=== PATIENT | female | born 1935 | race Caucasian/White ===

== ENCOUNTER 2017-02-11 18:00 | Inpatient (IN) | payer MEDICARE ==
--- NOTE | ~2017-02-11 | EKG ---
PATIENT: SMITH WELCH UNIT #: [id number] Ventricular Rate: 86 BPM Atrial Rate: 108 BPM QRS Duration: 90 ms Q-T Interval: 434 ms QTC Calculation(Bezet): 519 ms Calculated R [place]: -20 degrees Calculated T [place]: 37 degrees Diagnosis Line: Atrial fibrillation with premature ventricular or Diagnosis Line: aberrantly conducted complexes Diagnosis Line: Moderate voltage criteria for LVH, may be normal Diagnosis Line: variant Diagnosis Line: Prolonged QT Diagnosis Line: Abnormal ECG Diagnosis Line: When compared with ECG of 26-MAR-2015 14:08, Diagnosis Line: Atrial fibrillation has replaced Sinus rhythm Diagnosis Line: Confirmed by JOSELUIS HOUSER MD ([id number]) on 02/12/2017 Diagnosis Line: 9:57:03 PM INTERPRETING MD: CORRINA SANTANA
--- NOTE | ~2017-02-11 | EKG ---
PATIENT: SMITH WELCH UNIT #: [id number] Ventricular Rate: 116 BPM Atrial Rate: 116 BPM QRS Duration: 86 ms Q-T Interval: 360 ms QTC Calculation(Bezet): 500 ms Calculated R [place]: -9 degrees Calculated T [place]: 25 degrees Diagnosis Line: Atrial fibrillation with rapid ventricular Diagnosis Line: response with premature ventricular or aberrantly Diagnosis Line: conducted complexes Diagnosis Line: Cannot rule out Inferior infarct , age Diagnosis Line: undetermined Diagnosis Line: Abnormal ECG Diagnosis Line: When compared with ECG of 12-FEB-2017 07:43, Diagnosis Line: (unconfirmed) Diagnosis Line: Nonspecific T wave abnormality, worse in Inferior Diagnosis Line: leads Diagnosis Line: Confirmed by JOSELUIS HOUSER MD ([id number]) on 02/12/2017 Diagnosis Line: 9:59:24 PM INTERPRETING MD: CORRINA SANTANA
--- NOTE | ~2017-02-11 | EKG ---
PATIENT: SMITH WELCH UNIT #: [id number] Ventricular Rate: 87 BPM Atrial Rate: 85 BPM QRS Duration: 90 ms Q-T Interval: 430 ms QTC Calculation(Bezet): 517 ms Calculated R [place]: -11 degrees Calculated T [place]: 18 degrees Diagnosis Line: Atrial fibrillation with premature ventricular or Diagnosis Line: aberrantly conducted complexes Diagnosis Line: Prolonged QT Diagnosis Line: Abnormal ECG Diagnosis Line: When compared with ECG of 26-MAR-2015 14:08, Diagnosis Line: Atrial fibrillation has replaced Sinus rhythm Diagnosis Line: Confirmed by JOSELUIS HOUSER MD ([id number]) on 02/12/2017 Diagnosis Line: 9:54:28 PM INTERPRETING MD: CORRINA SANTANA
--- NOTE | ~2017-02-11 | DS ---
Unit #: [id number] #: [id number] Patient: SMITH WELCH [id number] [address] [place], [place] [address] [id number] I MR#: [id number] NAME: SMITH WELCH ROOM: 548 Age: 81 Sex: F Admission Date: 02/11/2017 : 1935 Discharge Date: 02/13/2017 Attending Physician: Ritchie Mariee M.D. Primary Care Physician: Rajat Candelario M.D. DISCHARGE SUMMARY DISCHARGE DIAGNOSES 1. New onset atrial fibrillation. 2. Systolic congestive heart failure. 3. Valvular heart disease with moderate to severe mitral regurgitation, moderate tricuspid regurgitation, left ventricular ejection fraction 40% to 45%. 4. Hypertension. DISCHARGE MEDICATIONS Xarelto 15 mg p.o. daily, alprazolam 0.25 mg p.o. q.h.s. as needed anxiety, Carvedilol 6.25 mg p.o. b.i.d., MiraLAX 17 g daily as needed for constipation, furosemide 40 mg p.o. once daily, Cozaar 100 mg p.o. q.h.s., multivitamin one tab p.o. daily, calcium carbonate with vitamin D one tab p.o. daily, potassium chloride 20 mEq p.o. b.i.d. for 5 days and 1 daily. HOSPITAL COURSE The patient was seen in the office on 02/11/[address] Mariee, seen and examined. She had been accompanied by her daughter. After being seen by Dr. Rajat Candelario earlier in the day where an EKG was performed and showed atrial fibrillation with rapid ventricular response, which was new in comparison to the EKG in 10/2016. The patient was referred to Dr. Mariee for further evaluation. 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 Dr. Mariee found that she again was in atrial fibrillation with RVR and was volume overloaded and felt that she needed to be admitted for further evaluation. Initial EKG in the hospital shows atrial fibrillation with rapid ventricular response rate of 116 beats per minute, cannot rule out prior inferior infarct, age undetermined, QTc interval 500 msec. No acute ischemic changes noted. The patient was started on Xarelto 15 mg immediately for anticoagulation secondary to the new onset of atrial fibrillation, when it began is unknown. She was also given losartan, Lasix and carvedilol. She underwent a chest x-ray, and also had lab work done. The patient had a 2D echocardiogram during this hospitalization, which shows ejection fraction at 40% to 45%, moderate hypokinesis of the distal septal wall, mild AR, mild mitral valve prolapse, moderate to severe mitral regurgitation, eccentric mitral regurgitation jet, moderate tricuspid regurgitation, RVSP is 31 mmHg. No pericardial effusion was noted. She was diuresed and also placed on rate controlling agents with carvedilol, which was increased during her hospitalization. Her blood pressure tolerated it well. Unit #: [id number] #: [id number] Patient: SMITH WELCH At present, the patient has been up and about, moving. Her only complaint is arthritic pain. Again denies any complaints of chest pain or shortness of breath. At this time, she has felt she is ready to go home. PAST MEDICAL HISTORY 1. Hypertension. 2. Hyperlipidemia. 3. New onset atrial fibrillation with rapid ventricular response. 4. Systolic congestive heart failure. 5. Valvular heart disease with [id number] MR and TR. 6. Anxiety. 7. Arthritis. 8. Constipation. 9. Degenerative disk disease. CONSULTANTS None. DIAGNOSTIC STUDIES IMAGING STUDIES: PA and lateral of the chest shows no acute chest findings. No evidence of pulmonary edema. Stable cardiomegaly. Stable large hiatal hernia on the left corresponding to previous CT of the abdomen. Probable chronic passive left basilar atelectasis as a result. LABORATORY RESULTS: Glucose 113, BUN 28, creatinine 1.1, sodium 137, potassium 3.7, chloride 104, CO2 of 28, magnesium 1.8. BNP 255. Cholesterol 162, triglycerides 88, LDL 86, HDL 58. TSH 2.57, free T4 is 0.93. Hemoglobin 13.3, hematocrit 41.1, WBC 5.9, platelet 263. CARDIOVASCULAR STUDIES: EKG shows atrial fibrillation with RVR, occasional PVCs, 116 beats per minute, cannot rule out inferior infarct, age undetermined, QTc interval of 500 msec. 2D echocardiogram on 02/11/2017 shows EF of 40% to 45%, mild AR, mild mitral valve prolapse, moderate to severe mitral regurgitation, eccentric mitral regurgitation jet, moderate tricuspid regurgitation, RVSP 31 mmHg. No pericardial effusion. Aortic root is within normal limits. PHYSICAL EXAMINATION VITAL SIGNS: Temperature 97.8, respiratory rate 18 to 20, pulse is 63 to low 100. She does get a little elevated with activity into the 110s to 120s. Blood pressure 118/67 to 149/87. GENERAL: This is a very pleasant, 81-year-old, female, up in the chair, in no acute distress. She has been ambulating in the hallway without difficulty. HEENT: Pupils are equal and round. Mucous membranes are moist. NECK: Trachea is midline. No carotid bruits. No JVD. CARDIOVASCULAR: S1, S2. Irregularly irregular. Grade 1/6 systolic murmur noted at the left lower sternal border. LUNGS: Clear to auscultation. ABDOMEN: Soft, nontender, nondistended. Positive bowel sounds. EXTREMITIES: No pedal edema. NEUROLOGIC: She is awake, alert, and oriented x3. She moves all extremities equally. She follows commands with ease. DISCHARGE INSTRUCTIONS The patient was admitted secondary to new onset atrial fibrillation and Unit #: [id number] #: [id number] Patient: SMITH WELCH systolic congestive heart failure. She has been seen and evaluated by Dr. Mariee today and he has felt she is stable for discharge. The patient has been started on anticoagulation with Xarelto. She was notified regarding the risks of bleeding and what to monitor for. The patient verbalized understanding. She appears euvolemic at this time. She is feeling much better. She complains only of arthritic pain and nasal stuffiness. Her chest is clear. Her heart sounds are normal other than a mild systolic murmur. The patient has also been started on beta-joseph therapy. Her cardiac rhythm has remained stable. She remains in atrial fibrillation with mostly controlled rates, occasionally tachycardic with activity. All instructions were given to the patient. Signs and symptoms of heart failure were reviewed with her and for which she should notify the office. The patient was advised to notify our office if she notices increasing shortness of breath, chest pain, or leg swelling. She is okay with the cost of Xarelto and is agreeable. She will see Dr. Mariee in the office on 02/27/2017 at 1:00 p.m. If she remains in atrial fibrillation at that time, and is continued on chronic anticoagulation, DC cardioversion could be considered. Dictated by... Barbara Delong A.P.R.N. for Isai Stover/laly TD: 02/14/2017 08:43 JOB #: [id number] DISCHARGE SUMMARY X Barbara Delong APRN X DISCHARGE SUMMARY
--- NOTE | ~2017-02-11 | CR63 ---
[facility] A Service of [facility] & [facility] RADIOLOGY TEXT RESULTS PATIENT: SMITH WELCH LOCATION: [facility] [id number] : [birth year] UNIT #: [id number] AGE: [address]: Ritchie Mariee MD SEX: F ORDER DR: [id number] [facility] [address] [facility]. [place], [place] [address] [id number] I MR#: [id number] Acc #: [id number] NAME: SMITH WELCH : 1935 SEX: F STUDY DATE/TIME: 02/11/2017 22:42 UNIT: C5 ROOM: [facility] STUDY DESCRIPTION: CR Chest 2 View Attending Physician: Ritchie Mariee M.D. Ordering Physician: Ritchie Mariee M.D. Primary Care Physician: Rajat Candelario M.D. MEDICAL IMAGING REPORT This report is preliminary unless electronic signature is present EXAM PA and lateral chest, 02/11/2017. HISTORY 81-year-old female with direct admission for congestive heart failure. Weakness, atrial fibrillation, and short of breath for 1 day. History of colon cancer in 2004. COMPARISON STUDIES AP portable chest radiograph, 03/26/2005; PA and lateral chest, 01/09/2015, CT abdomen and pelvis, 11/07/2012. FINDINGS There is a large hiatal hernia projecting to the left of midline, corresponding to previous CT abdomen from 2011. This results in probably passive left basilar atelectasis. However, no acute-appearing airspace disease is identified. There is mild cardiac enlargement, but pulmonary vascular distribution is within normal limits, and there is no evidence of pulmonary edema. No pleural effusion or pneumothorax is seen. IMPRESSION 1. No acute chest findings. No evidence of pulmonary edema. 2. Stable cardiomegaly. 3. Stable large hiatal hernia on the left corresponding to previous CT abdomen from 2011. Probable chronic passive left basilar atelectasis as a result. Dictated by... Diana Redd M.D. THIS IS AN ELECTRONICALLY VERIFIED REPORT [facility] A Service of [facility] RADIOLOGY TEXT RESULTS PATIENT: SMITH WELCH LOCATION: [facility] [phone] : [birth year] UNIT #: [id number] AGE: [address]: Ritchie Mariee MD SEX: F ORDER DR: Diana Redd M.D. at 02/12/2017 10:26 PM SHELBY/antonino TD: 02/12/2017 11:34 JOB #: [id number] MEDICAL IMAGING REPORT COPY
[~2017-02-11 18:00] MED LIST: ALEVE220 M1; ALEVE220 M1 PO; ALPRAZOLAM1 MG PO; AMLODIPINE BES2.5 MG PO; AMLODIPINE BESYL5 MG PO; ATACAND HCT 32/1 TAB; CALCIUM + D 6001 TA1 PO; CALCIUM 600 + D1 TA1 PO; CENTRUM SILVER; CENTRUM SILVER PO; COLACE; DIOVAN PO; GLUCOSAMINE CHO PO; GLUCOSAMINE CHON; K-DUR20 ME1 PO; LORTAB 7.5-5001 TAB PO; LOSARTAN-HCTZ1 EAC1 PO; LOSARTAN-HCTZ1 EAC2 PO; MIRALAX17 GM PO; MULTI-VITAMIN1 TAB; RA GLUCOSAMINE PO; ZOLPIDEM TARTRAT5 MG PO; ZYRTEC10 M2 PO; [UNRECOGNIZED DRUG - OTHER]
[2017-02-11 22:09] LABS: BASOPHIL# 0.1 X10e3 (0-0.3); BASOPHIL% 2.5 % (0-2.5); EOSINOPHIL# 0.1 X10e3 (0-0.7); EOSINOPHIL% 1.7 % (0.0-7.0); HEMATOCRIT 41.1 % (35.0-45.0); HEMOGLOBIN 13.3 gm/dL (12.0-16.0); LYMPHOCYTE# 1.6 X10e3 (1.0-3.5); LYMPHOCYTE% 27.9 % (17.0-45.0); MEAN CORPUSCULAR HEMOGLOBIN 29.9 PG (28-34); MEAN CORPUSCULAR HGB CONC 32.5 g/dL (30-36); MEAN PLATELET VOLUME 7.7 FL (6.5-11.5); MONOCYTE# 0.5 X10e3 (0-1.0); MONOCYTE% 7.7 % (3.0-12.0); NEUTROPHIL# 3.5 X10e3 (1.5-7.1); NEUTROPHIL% 60.2 % (40-75); PLATELET COUNT 263 X10e3 (140-420); RED BLOOD COUNT 4.46 X10e (3.90-5.30); RED CELL DISTRIBUTION WIDTH 13.9 % (11.0-15.5); WHITE BLOOD COUNT 5.9 X10e3 (4.0-10.5)
[2017-02-11 22:11] LABS: DIFF IND NO
[2017-02-11 22:31] LABS: ALBUMIN SERUM 4.3 g/dL (3.5-5.0); ALKALINE PHOSPHATASE 57 U/L (32-92); ALT (SGPT) 14 U/L (10-40); AST (SGOT) 22 U/L (10-42); BILIRUBIN,TOTAL 0.8 mg/dL (0.2-2.0); BLOOD UREA NITROGEN 23 mg/dL (9-23); BUN/CREATININE RATIO 25.55; CARBON DIOXIDE 25 mmol/L (22-31); CHLORIDE 108 mmol/L (100-111); CREATININE SERUM 0.9 mg/dL (0.6-1.4); GLOM FILT RATE Estimated ABOVE60 mL/min (>60); GLUCOSE FASTING 117 mg/dL (70-110); POTASSIUM 3.6 mmol/L (3.5-5.1); PROTEIN TOTAL SERUM 6.7 g/dL (6.0-8.3); SODIUM 137 mmol/L (135-145)
[2017-02-11] MEDS ORDERED: CALCIUM 600 + D1 TAB PO (23:12)
[2017-02-11] MEDS ORDERED: CENTRUM SILVER PO (23:13)
[2017-02-11 23:14] LABS: THYROID STIMULATING HORMONE 2.57 uIU/ml (0.34-5.60)
[2017-02-11] MEDS ORDERED: ALPRAZOLAM0.25 MG PO (23:14)
[2017-02-11] MEDS ORDERED: K-DUR20 ME1 DOB (23:14)
[2017-02-11] MEDS ORDERED: MIRALAX17 GM DOB (23:15)
[2017-02-11] MEDS ORDERED: LOSARTAN-HCTZ1 EAC1 PO (23:16)
[2017-02-11 23:21] LABS: FREE THYROXIN (T4) 0.93 ng/dL (0.58-1.64)
[2017-02-12 06:29] LABS: CHOLESTEROL 162 mg/dL (0-200); HDL CHOLESTEROL 58 mg/dL (35-95); LDL CHOLESTEROL 86 mg/dL (-130); LDL/HDL RATIO 1 RATIO (0-4); TRIGLYCERIDES 88 mg/dL (10-160)
[2017-02-12 13:31] LABS: CALCIUM SERUM 9.1 mg/dL (8.4-10.2); GLOM FILT RATE Estimated 56.3 mL/min (>60); MAGNESIUM 1.8 mg/dL (1.6-3.0); POTASSIUM 3.4 mmol/L (3.5-5.1)
[2017-02-13 09:54] LABS: BUN/CREATININE RATIO 25.45; CREATININE SERUM 1.1 mg/dL (0.6-1.4); GLOM FILT RATE Estimated 50.4 mL/min (>60); POTASSIUM 3.7 mmol/L (3.5-5.1)
[2017-02-13] MEDS ORDERED: XARELTO15 MG PO (11:59)
[2017-02-13] MEDS ORDERED: ARTHRITIS PAIN650 M3 PO (11:59)
[2017-02-13] MEDS ORDERED: COREG6.25 MG PO (14:29)
[2017-02-13] MEDS ORDERED: K-DUR20 ME1 PO (14:31)
[2017-02-13] MEDS ORDERED: COZAAR100 MG PO (14:32)
[2017-02-13] MEDS ORDERED: FUROSEMIDE40 MG PO (14:33)
[2017-04-22] MEDS ORDERED: LOSARTAN-HCTZ1 EAC3 PO (15:39)
[2017-04-22] MEDS ORDERED: KCL (15:39)
[2017-04-22] MEDS ORDERED: HEART MED (15:41)
[2017-04-23] MEDS ORDERED: ARTHRITIS PAIN650 M3 PO (10:57)
[2017-04-23] MEDS ORDERED: ALPRAZOLAM0.25 M1 PO (10:57)
[2017-04-23] MEDS ORDERED: COREG6.25 M1 PO (10:58)
[2017-04-23] MEDS ORDERED: AMIODARONE HCL200 MG PO (11:45)
[2017-04-23] MEDS ORDERED: MULTI VITAMIN1 EACH PO (15:38)
[2017-04-23] MEDS ORDERED: XARELTO15 MG PO (15:38)
[2017-04-23] MEDS ORDERED: ALEVE220 M1 PO (15:40)
[2017-04-23] MEDS ORDERED: MIRALAX119 GM PO (15:40)
[2017-04-23] MEDS ORDERED: CALCIUM 500 +1 EAC6 PO (15:40)
== END 2017-02-13 18:33 | disposition home or self-care (01) | DRG 308 ==
LOC: C5B 18:00
PROVIDERS: Internal Medicine Cardiovascular Disease; Nurse Practitioner
DX: I48.91 Unspecified atrial fibrillation (principal); I50.23 Acute on chronic systolic (congestive) heart failure; I11.0 Hypertensive heart disease with heart failure; I08.3 Combined rheumatic disorders of mitral, aortic and tricuspid valves; E78.5 Hyperlipidemia, unspecified; F41.9 Anxiety disorder, unspecified; M19.90 Unspecified osteoarthritis, unspecified site
CPT/HCPCS: 71020; 80048; 80053; 80061; 83735; 83880; 84439; 84443; 85025; 93005; J3475

== ENCOUNTER 2017-04-14 18:28 | Emergency (ER) | payer MEDICARE ==
--- NOTE | ~2017-04-14 | EKG ---
PATIENT: SMITH WELCH UNIT #: [id number] Ventricular Rate: 100 BPM Atrial Rate: 300 BPM QRS Duration: 102 ms Q-T Interval: 406 ms QTC Calculation(Bezet): 523 ms Calculated R [place]: -23 degrees Calculated T [place]: 8 degrees Diagnosis Line: Atrial flutter with variable A-V block Diagnosis Line: Moderate voltage criteria for LVH, may be normal Diagnosis Line: variant Diagnosis Line: Prolonged QT Diagnosis Line: Abnormal ECG Diagnosis Line: When compared with ECG of 12-FEB-2017 11:11, Diagnosis Line: Atrial flutter has replaced Atrial fibrillation Diagnosis Line: Criteria for Inferior infarct are no longer Diagnosis Line: Present Diagnosis Line: Confirmed by DEE DEE MCGEE MD ([id number]) on Diagnosis Line: 04/15/2017 1:31:33 PM INTERPRETING MD: EVERARDO SANTANA
[~2017-04-14 18:28] MED LIST changes: +ALPRAZOLAM0.25 MG PO; +ARTHRITIS PAIN650 M3 PO; +CALCIUM 600 + D1 TAB PO; +COREG6.25 MG PO; +COZAAR100 MG PO; +FUROSEMIDE40 MG PO; +K-DUR20 ME1 DOB; +MIRALAX17 GM DOB; +XARELTO15 MG PO
[2017-04-14 19:14] LABS: BASOPHIL% 0.8 % (0-2.5); EOSINOPHIL# 0.1 X10e3 (0-0.7); EOSINOPHIL% 1.8 % (0.0-7.0); HEMOGLOBIN 13.7 gm/dL (12.0-16.0); LYMPHOCYTE# 1.6 X10e3 (1.0-3.5); LYMPHOCYTE% 27.2 % (17.0-45.0); MEAN CORPUSCULAR HGB CONC 32.6 g/dL (30-36); MEAN PLATELET VOLUME 7.5 FL (6.5-11.5); MONOCYTE# 0.5 X10e3 (0-1.0); MONOCYTE% 7.7 % (3.0-12.0); NEUTROPHIL# 3.7 X10e3 (1.5-7.1); NEUTROPHIL% 62.5 % (40-75); PLATELET COUNT 268 X10e3 (140-420); RED BLOOD COUNT 4.57 X10e (3.90-5.30); RED CELL DISTRIBUTION WIDTH 13.5 % (11.0-15.5); WHITE BLOOD COUNT 5.9 X10e3 (4.0-10.5)
[2017-04-14 19:15] LABS: DIFF IND NO
[2017-04-14 19:39] LABS: ALBUMIN SERUM 4.4 g/dL (3.5-5.0); BILIRUBIN,TOTAL 0.8 mg/dL (0.2-2.0); CALCIUM SERUM 9.2 mg/dL (8.4-10.2); GLOM FILT RATE Estimated 52.1 mL/min (>60); POTASSIUM 3.3 mmol/L (3.5-5.1); PROTEIN TOTAL SERUM 7.3 g/dL (6.0-8.3)
[2017-04-14 21:19] LABS: POC - CKMB <1.0 ng/mL (0.0-7.9); POC - TROPONIN <0.05 ng/mL (<=0.05)
[2017-04-14 22:21] LABS: CULTURE INDICATED? YES; URINE APPEARANCE CLEAR; URINE BACTERIA AUWI NEG (NEGATIVE); URINE BILIRUBIN NEG (NEG); URINE BLOOD 2+ (NEG); URINE COLOR YELLOW; URINE GLUCOSE NEG (NEG); URINE KETONE NEG (NEG); URINE LEUKOCYTE ESTERASE 1+ (NEG); URINE NITRATE NEG (NEG); URINE PROTEIN 1+ (NEG); URINE SPECIFIC GRAVITY 1.006 (1.003-1.035); URINE SQUAMOUS EPITHELIAL CELL OCC /[HPF]; URINE UROBILINOGEN 0.2 MG/DL (NEG)
[2017-04-22] MEDS ORDERED: LOSARTAN-HCTZ1 EAC3 PO (15:39)
[2017-04-22] MEDS ORDERED: KCL (15:39)
[2017-04-22] MEDS ORDERED: HEART MED (15:41)
[2017-04-23] MEDS ORDERED: ARTHRITIS PAIN650 M3 PO (10:57)
[2017-04-23] MEDS ORDERED: ALPRAZOLAM0.25 M1 PO (10:57)
[2017-04-23] MEDS ORDERED: COREG6.25 M1 PO (10:58)
[2017-04-23] MEDS ORDERED: AMIODARONE HCL200 MG PO (11:45)
[2017-04-23] MEDS ORDERED: XARELTO15 MG PO (15:38)
[2017-04-23] MEDS ORDERED: MULTI VITAMIN1 EACH PO (15:38)
[2017-04-23] MEDS ORDERED: ALEVE220 M1 PO (15:40)
[2017-04-23] MEDS ORDERED: MIRALAX119 GM PO (15:40)
[2017-04-23] MEDS ORDERED: CALCIUM 500 +1 EAC6 PO (15:40)
== END 2017-04-14 22:52 | disposition home or self-care (01) ==
LOC: CED 18:28
PROVIDERS: Emergency Medicine
DX: N30.00 Acute cystitis without hematuria (principal); I48.91 Unspecified atrial fibrillation; I10 Essential (primary) hypertension; F17.200 Nicotine dependence, unspecified, uncomplicated; Z88.8 Allergy status to other drugs, medicaments and biological substances; Z88.5 Allergy status to narcotic agent
CPT/HCPCS: 80053; 81003; 82553; 84484; 85025; 87086; 93005; 99283

== ENCOUNTER → 2017-04-23 | Outpatient (CLI) | payer MEDICARE ==
[~2017-04-23] MED LIST changes: +ALPRAZOLAM0.25 M1 PO; +AMIODARONE HCL200 MG PO; +CALCIUM 500 +1 EAC6 PO; +COREG6.25 M1 PO; +HEART MED; +KCL; +LOSARTAN-HCTZ1 EAC3 PO; +MIRALAX119 GM PO; +MULTI VITAMIN1 EACH PO
--- NOTE | ~2017-04-23 | OR ---
Unit #: [id number] #: [id number] Patient: SMITH WELCH [id number] [address] [address] [id number] MR#: [id number] NAME: SMITH WLECH ROOM: Date of Procedure: 04/23/2017 Admission Date: 04/23/2017 Surgeon: Ritchie Mariee M.D. : 1935 Attending Physician: Ritchie Mariee M.D. Referring Physician: Ritchie Mariee M.D. Primary Care Physician: Rajat Candelario M.D. OPERATIVE REPORT PROCEDURE PERFORMED Direct current shock cardioversion. INDICATIONS FOR PROCEDURE Atrial fibrillation. DESCRIPTION OF PROCEDURE The patient was brought to the cardiac catheterization lab, pulse oximetry showed a saturation of 97%. Rhythm was atrial fibrillation. Blood pressure was 140/70 mmHg. The patient was given 3 mg of intravenous Versed and 100 mcg of fentanyl in a graded manner. Once amnesia was established, using 250 joules per second of biphasic current DC shock cardioversion was performed. Rhythm converted to normal sinus with occasional PVCs. No other complications were encountered. IMPRESSION Successful direct current shock cardioversion, atrial fibrillation converted to normal sinus. The patient will be continued on all her home medicines and discharged home this afternoon. Dictated by... Isai Stover/laly TD: 04/23/2017 22:07 JOB #: [id number] OPERATIVE REPORT Page 1 of 1 X Ritchie Mariee MD X PROCEDURE OPERATIVE NOTE
--- NOTE | ~2017-04-23 | EKG ---
PATIENT: SMITH WELCH UNIT #: [id number] Ventricular Rate: 87 BPM Atrial Rate: 308 BPM QRS Duration: 98 ms Q-T Interval: 430 ms QTC Calculation(Bezet): 517 ms Calculated R [place]: -19 degrees Calculated T [place]: 45 degrees Diagnosis Line: Atrial flutter with variable A-V block Diagnosis Line: Minimal voltage criteria for LVH, may be normal Diagnosis Line: variant Diagnosis Line: Nonspecific ST abnormality Diagnosis Line: Prolonged QT Diagnosis Line: Abnormal ECG Diagnosis Line: When compared with ECG of 14-APR-2017 18:31, Diagnosis Line: No significant change was found Diagnosis Line: Confirmed by HUMZA LOPES MD ([id number]) on Diagnosis Line: 04/24/2017 1:17:28 PM INTERPRETING MD: JOHN
--- NOTE | ~2017-04-23 | EKG ---
PATIENT: SMITH WELCH UNIT #: [id number] Ventricular Rate: 61 BPM Atrial Rate: 61 BPM P-R Interval: 250 ms QRS Duration: 102 ms Q-T Interval: 472 ms QTC Calculation(Bezet): 475 ms P [place]: 56 degrees Calculated R [place]: -24 degrees Calculated T [place]: 83 degrees Diagnosis Line: Sinus rhythm with 1st degree A-V block Diagnosis Line: Moderate voltage criteria for LVH, may be normal Diagnosis Line: variant Diagnosis Line: Nonspecific T wave abnormality Diagnosis Line: Prolonged QT Diagnosis Line: Abnormal ECG Diagnosis Line: When compared with ECG of 23-APR-2017 11:11, Diagnosis Line: (unconfirmed) Diagnosis Line: Sinus rhythm has replaced Atrial flutter Diagnosis Line: Nonspecific T wave abnormality, worse in Inferior Diagnosis Line: leads Diagnosis Line: Confirmed by HUMZA LOPES MD ([id number]) on Diagnosis Line: 04/24/2017 1:17:40 PM INTERPRETING MD: JOHN
[2017-04-23 11:00] LABS: HEMATOCRIT 45.9 % (35.0-45.0); HEMOGLOBIN 14.9 gm/dL (12.0-16.0); MEAN CELL VOLUME 93.2 FL (83-96); MEAN CORPUSCULAR HEMOGLOBIN 30.2 PG (28-34); MEAN CORPUSCULAR HGB CONC 32.4 g/dL (30-36); MEAN PLATELET VOLUME 7.7 FL (6.5-11.5); RED BLOOD COUNT 4.93 X10e (3.90-5.30); RED CELL DISTRIBUTION WIDTH 13.6 % (11.0-15.5); WHITE BLOOD COUNT 6.1 X10e3 (4.0-10.5)
[2017-04-23 11:08] LABS: INR 1.2; PARTIAL THROMBOPLASTIN TIME 32.7 SECONDS (23.5-31.3); PROTHROMBIN TIME (PATIENT) 12.2 SECONDS (9.6-11.5)
[2017-04-23 11:16] LABS: BUN/CREATININE RATIO 22.5; CALCIUM SERUM 9.4 mg/dL (8.4-10.2); CREATININE SERUM 1.2 mg/dL (0.6-1.4); GLOM FILT RATE Estimated 41.8 mL/min (>60); POTASSIUM 3.8 mmol/L (3.5-5.1)
== END | disposition home or self-care (01) ==
LOC: CCVL 10:14
PROVIDERS: Internal Medicine Cardiovascular Disease
DX: I48.91 Unspecified atrial fibrillation (principal); R73.09 Other abnormal glucose; R73.9 Hyperglycemia, unspecified; E78.5 Hyperlipidemia, unspecified; E87.6 Hypokalemia; I11.0 Hypertensive heart disease with heart failure; I50.9 Heart failure, unspecified; K59.00 Constipation, unspecified; F41.9 Anxiety disorder, unspecified; M19.90 Unspecified osteoarthritis, unspecified site; M50.10 Cervical disc disorder with radiculopathy, unspecified cervical region; R53.83 Other fatigue; J30.9 Allergic rhinitis, unspecified; I38 Endocarditis, valve unspecified; Z79.899 Other long term (current) drug therapy; Z87.440 Personal history of urinary (tract) infections; Z87.09 Personal history of other diseases of the respiratory system; Z85.038 Personal history of other malignant neoplasm of large intestine; Z96.652 Presence of left artificial knee joint; Z88.8 Allergy status to other drugs, medicaments and biological substances; Z88.2 Allergy status to sulfonamides; Z88.5 Allergy status to narcotic agent
CPT/HCPCS: 36415; 80048; 85027; 85610; 85730; 92960; 93005; J0461; J2250; J2310; J3010